=== PATIENT | male | born 1985 | race Caucasian/White ===

== ENCOUNTER 2021-11-14 05:31 | Day surgery (SDC) | payer BC, OTHER ==
[2021-11-13 14:53] VITALS: BMI 27.8
[2021-11-14] MEDS ORDERED: PROPOFOL 20 ML ONE ×2 (08:49)
[2021-11-14] MEDS ORDERED: ceFAZolin SODIUM 1 GM VIAL ONE ×3 (08:49→09:40)
[2021-11-14] MEDS ORDERED: MIDAZOLAM HCL 2 MG/2 ML SINGLE DOSE VIAL ONE ×2 (08:50→08:52)
[2021-11-14] MEDS ORDERED: LIDOCAINE HCL/PF 2% SDV 5ML VIAL ONE (08:57)
[2021-11-14] MEDS ORDERED: oxyCODONE HCL 5 MG TABLET PO PRN (09:04)
[2021-11-14] MEDS ORDERED: ONDANSETRON 4 MG/2 ML VIAL IVPUSH PRN (09:04)
[2021-11-14] MEDS ORDERED: DEXAMETHASONE SOD PHOSPHATE 4 MG/1 ML VIAL ONE ×2 (09:13→09:40)
[2021-11-14] MEDS ORDERED: ceFAZolin SODIUM 1 GM VIAL IVPB ONE (09:15)
[2021-11-14] MEDS ORDERED: LACTATED RINGERS SOLUTION 1,000 ML IV SCH (09:15)
[2021-11-14] MEDS ORDERED: ePHEDrine SULFATE 50 MG/1 ML AMPULE ONE (09:54)
[2021-11-14 14:57] VITALS: BP 128/78; PULSE 56; TEMP 98
== END 2021-11-14 13:45 | disposition home or self-care (01) ==
LOC: JASU-SURG 05:31
PROVIDERS: ATTEND Orthopaedic Surgery
PROC: 0J9L00Z Drainage of Right Upper Leg Subcutaneous Tissue and Fascia with Drainage Device, Open Approach (ICD-10-PCS; principal; 2021-11-14 09:00)
DX: S70.12XA Contusion of left thigh, initial encounter (principal); X58.XXXA Exposure to other specified factors, initial encounter; Y93.9 Activity, unspecified; Y92.9 Unspecified place or not applicable
CPT/HCPCS: 94760; 97116-GP